=== PATIENT | female | born 1970 | race African-American/Black ===

== ENCOUNTER 2017-07-03 05:41 | Emergency (ER) | payer OTHER ==
[~2017-07-03] VITALS: Ht 152.4 cm; Wt 140.9 kg
[~2017-07-03 05:41] MED LIST: ALBUTEROL S2.5 MG/.5 IN; ALBUTEROL SUL0.083 % IN; ALEVE220 M2 PO; AMOX/K CLAV875 M1 PO; AMOXICILLIN500 MG PO; AMOXICILLIN875 MG OR; B12 LIQUID OR; B12-ACTIVE1 MG PO; BL ADULT ASA81 MG PO; CIPRO500 MG OR; CIPROFLOXACN500 MG PO; DICLOFENAC25 MG PO; FE TABS325 MG PO; FISH OIL300 MG OR; FLEXERIL OR; FLEXERIL PO; FLEXERIL5 M1; FLEXERIL5 M1 PO; FLONASE NASAL50 MCG; HYDROCHLOROT25 MG OR; IBU800 MG OR; IBUPROFEN800 MG OR; IRON18 M1 OR; IRON325 MG PO; KETOROLAC60 MG/2 ML IJ; KETOROLAC60 MG/2 ML IM; MEDDOSEPAK PO; MOBIC7.5 M1; MOBIC7.5 M1 PO; MOTRIN800 MG/TAB PO; NAPROSYN500 MG PO; NORVASC10 M1 PO; NORVASC10 MG PO; NORVASC5 MG OR; PEPTO-BISMOL262 MG OR; PREDNISONE20 MG PO; PROAIR HFA IN; PROMETHAZINE25 MG OR; PROTONIX40 MG OR; PROVERA2.5 MG OR; PYRIDIUM200 MG OR; ROCEPHIN 1 GM1 GM IM; SIMVASTATIN20 MG PO; SOLU-MEDROL125 MG IM; TAGAMET300 MG OR; TORADOL30 MG/VIAL IJ; ULTRAM50 M1 PO; VITAMIN B-12500 MCG PO; ZITHROMAX250 MG PO; ZOCOR20 M1 PO; ZOCOR20 MG PO; ZOFRAN ODT4 MG OR; ZPAK PO; [UNRECOGNIZED DRUG - CODE] OR
[2017-07-03] MEDS ORDERED: AMLOD/BENAZP1 CA2 PO (06:06)
[2017-07-03] MEDS ORDERED: MOTRIN400 MG PO (07:41)
[2017-07-03 07:42] VITALS: BP 136/81
== END 2017-07-03 07:59 | disposition home or self-care (01) | DRG 552 ==
LOC: ED 05:41
DX: M54.5 Low back pain (principal); I10 Essential (primary) hypertension; J45.909 Unspecified asthma, uncomplicated; E78.5 Hyperlipidemia, unspecified; G47.30 Sleep apnea, unspecified; V49.40XA Driver injured in collision with unspecified motor vehicles in traffic accident, initial encounter

== ENCOUNTER 2019-03-31 15:14 | Emergency (ER) | payer OTHER ==
[~2019-03-31] VITALS: Ht 152.4 cm; Wt 140.9 kg
[~2019-03-31 15:14] MED LIST changes: +AMLOD/BENAZP1 CA1 PO; +MOTRIN400 MG PO
[2019-03-31 16:10] LABS: HEMATOCRIT 40.9 % (37.0-47.0); HEMOGLOBIN 12.3 g/dl (12.0-16.0); IMMATURE GRANULOCYTES 0.6 % (0.0-5.0); MEAN CELL VOLUME 78.7 fL CALC (80.0-100.0); MEAN CORPUSCULAR HGB 23.7 pG CALC (26.0-32.0); MEAN CORPUSCULAR HGB CONC 30.1 g/L CALC (32.0-36.0); NEUT# 3.72 thou/uL (2.00-7.15); RED BLOOD COUNT 5.2 mill/uL (4.20-5.60); RED CELL DISTRI WIDTH 17.9 % (11.5-15.5)
[2019-03-31 16:22] LABS: URINE BILIRUBIN - DIPSTICK NEGATIVE (NEGATIVE); URINE BLOOD DIPSTICK NEGATIVE (NEGATIVE); URINE COLOR YELLOW; URINE GLUCOSE - DIPSTICK NEGATIVE (NEGATIVE); URINE KETONE NEGATIVE (NEGATIVE); URINE LEUK ESTERASE NEGATIVE (NEGATIVE); URINE NITRITE - DIPSTICK NEGATIVE (Negative); URINE PROTEIN - DIPSTICK NEGATIVE (NEG-TRACE); URINE UROBILINOGEN - DIPSTICK 0.2 E.U./dL (0.2)
[2019-03-31 16:54] LABS: ANION GAP 12 (6-22 (CALC)); BUN 18 mg/dL (7-17); BUN/CREATININE RATIO 25 (12-20 (CALC)); CARBON DIOXIDE 32 mmol/l (22-30); CHLORIDE 103 mmol/l (95-108); CREATININE 0.7 mg/dL (0.5-1.0); GFR > 60 ML/MIN (>=60 (CALC)); GFR FOR AFR.AMER. > 60 ML/MIN (>=60 (CALC)); POTASSIUM 4.2 mmol/l (3.5-5.1); SODIUM 142 mmol/l (137-146)
[2019-03-31] MEDS ORDERED: FERROUS SULF325 M2 PO (17:01)
[2019-03-31] MEDS ORDERED: LASIX20 MG PO (17:01)
[2019-03-31] MEDS ORDERED: B-12500 MC1 PO (17:02)
[2019-03-31] MEDS ORDERED: FLOVENT HF220 MCG/AC IN (17:03)
[2019-03-31] MEDS ORDERED: METFORMIN500 MG PO (17:04)
[2019-03-31] MEDS ORDERED: LIPITOR20 M1 PO (17:04)
[2019-03-31 17:44] VITALS: BP 161/67
== END 2019-03-31 18:05 | disposition home or self-care (01) | DRG 103 ==
LOC: ED 15:14
PROVIDERS: Family Medicine
DX: R51 Headache (principal); I10 Essential (primary) hypertension; H53.149 Visual discomfort, unspecified

== ENCOUNTER 2019-09-13 19:22 | Inpatient (IN) | payer OTHER ==
[~2019-09-13] VITALS: Ht 152.4 cm; Wt 147.4 kg
[~2019-09-13 19:22] MED LIST changes: +B-12500 MC1 PO; +FERROUS SULF325 M2 PO; +FLOVENT HF220 MCG/AC IN; +LASIX20 MG PO; +LIPITOR20 M1 PO; +METFORMIN500 MG PO
[2019-09-13 20:12] LABS: HEMATOCRIT 42.1 % (37.0-47.0); HEMOGLOBIN 12.4 g/dl (12.0-16.0); IMMATURE GRANULOCYTES 0.5 % (0.0-5.0); MEAN CELL VOLUME 76.5 fL CALC (80.0-100.0); MEAN CORPUSCULAR HGB 22.5 pG CALC (26.0-32.0); MEAN CORPUSCULAR HGB CONC 29.5 g/L CALC (32.0-36.0); NEUT# 7.33 thou/uL (2.00-7.15); RED BLOOD COUNT 5.5 mill/uL (4.20-5.60); RED CELL DISTRI WIDTH 18.3 % (11.5-15.5)
[2019-09-13 20:27] LABS: ALBUMIN 4.2 g/dL (3.2-5.0); ALKALINE PHOSPHATASE 119 u/l (38-126); ANION GAP 12 (6-22 (CALC)); BILIRUBIN, TOTAL 0.4 mg/dL (0.0-1.4); BUN 13 mg/dL (7-17); BUN/CREATININE RATIO 19 (12-20 (CALC)); CARBON DIOXIDE 31 mmol/l (22-30); CHLORIDE 99 mmol/l (95-108); CREATININE 0.7 mg/dL (0.5-1.0); GFR > 60 ML/MIN (>=60 (CALC)); GFR FOR AFR.AMER. > 60 ML/MIN (>=60 (CALC)); POTASSIUM 4.1 mmol/l (3.5-5.1); SGOT/AST 24 u/l (14-36); SODIUM 137 mmol/l (137-146); TOTAL PROTEIN 8.3 g/dL (6.3-8.2)
[2019-09-13 20:39] LABS: MYOGLOBIN 33 ng/mL (0 - 62)
[2019-09-13 22:45] LABS: URINE BILIRUBIN - DIPSTICK NEGATIVE (NEGATIVE); URINE BLOOD DIPSTICK TRACE-INTACT (NEGATIVE); URINE COLOR YELLOW; URINE GLUCOSE - DIPSTICK NEGATIVE (NEGATIVE); URINE KETONE NEGATIVE (NEGATIVE); URINE LEUK ESTERASE NEGATIVE (NEGATIVE); URINE NITRITE - DIPSTICK NEGATIVE (Negative); URINE PH 6.5 (4.5-8.0); URINE PROTEIN - DIPSTICK NEGATIVE (NEG-TRACE); URINE UROBILINOGEN - DIPSTICK 0.2 E.U./dL (0.2)
[2019-09-13] MEDS ORDERED: SINGULAIR10 MG PO (23:09)
[2019-09-13] MEDS ORDERED: XALATAN 0.005%2.5 ML OU (23:12)
[2019-09-14] VITALS (7 sets, daily range): BP systolic 122–170; BP diastolic 73–84
[2019-09-14 10:20] LABS: MAGNESIUM 1.6 mg/dL (1.6-2.3)
[2019-09-14] MEDS ORDERED: IPRATROPIU0.5 MG/3 M NEB (13:53)
[2019-09-14] MEDS ORDERED: VENTOLIN H108 MCG/AC PO (13:56)
[2019-09-15 04:07] VITALS: BP 142/86
[2019-09-15 06:13] LABS: ANION GAP 11 (6-22 (CALC)); BUN 16 mg/dL (7-17); BUN/CREATININE RATIO 27 (12-20 (CALC)); CARBON DIOXIDE 31 mmol/l (22-30); CHLORIDE 102 mmol/l (95-108); CREATININE 0.6 mg/dL (0.5-1.0); GFR > 60 ML/MIN (>=60 (CALC)); GFR FOR AFR.AMER. > 60 ML/MIN (>=60 (CALC)); SODIUM 139 mmol/l (137-146)
[2019-09-15 06:18] LABS: HEMATOCRIT 43.6 % (37.0-47.0); HEMOGLOBIN 12.8 g/dl (12.0-16.0); IMMATURE GRANULOCYTES 0.9 % (0.0-5.0); MEAN CELL VOLUME 77.4 fL CALC (80.0-100.0); MEAN CORPUSCULAR HGB 22.7 pG CALC (26.0-32.0); MEAN CORPUSCULAR HGB CONC 29.4 g/L CALC (32.0-36.0); NEUT# 10.15 thou/uL (2.00-7.15); RED BLOOD COUNT 5.63 mill/uL (4.20-5.60); RED CELL DISTRI WIDTH 18.6 % (11.5-15.5)
[2019-09-15 08:10] VITALS: BP 131/85
[2019-09-15 11:00] VITALS: BP 159/76
[2019-09-15 15:20] VITALS: BP 150/86
[2019-09-15 19:12] VITALS: BP 139/79
[2019-09-15 23:54] VITALS: BP 135/65
[2019-09-16 04:40] VITALS: BP 123/75
[2019-09-16 07:00] VITALS: BP 123/67
[2019-09-16 11:03] VITALS: BP 144/85
[2019-09-16 13:17] LABS: ANION GAP 12 (6-22 (CALC)); BUN 24 mg/dL (7-17); BUN/CREATININE RATIO 25 (12-20 (CALC)); CARBON DIOXIDE 32 mmol/l (22-30); CHLORIDE 99 mmol/l (95-108); GFR 58 ML/MIN (>=60 (CALC)); GFR FOR AFR.AMER. > 60 ML/MIN (>=60 (CALC)); POTASSIUM 4.9 mmol/l (3.5-5.1); SODIUM 138 mmol/l (137-146)
[2019-09-16 13:19] LABS: MAGNESIUM 2.1 mg/dL (1.6-2.3)
[2019-09-16 20:00] VITALS: BP 137/79
[2019-09-17 00:35] VITALS: BP 141/77
[2019-09-17 04:10] VITALS: BP 135/73
[2019-09-17 07:29] VITALS: BP 148/89
[2019-09-17 11:00] VITALS: BP 143/92
[2019-09-17 13:10] LABS: HEMATOCRIT 43.4 % (37.0-47.0); HEMOGLOBIN 12.8 g/dl (12.0-16.0); IMMATURE GRANULOCYTES 2.6 % (0.0-5.0); MEAN CELL VOLUME 77.1 fL CALC (80.0-100.0); MEAN CORPUSCULAR HGB 22.7 pG CALC (26.0-32.0); MEAN CORPUSCULAR HGB CONC 29.5 g/L CALC (32.0-36.0); NEUT# 10.98 thou/uL (2.00-7.15); RED BLOOD COUNT 5.63 mill/uL (4.20-5.60); RED CELL DISTRI WIDTH 18.6 % (11.5-15.5)
[2019-09-17 13:31] LABS: ANION GAP 13 (6-22 (CALC)); BUN 24 mg/dL (7-17); BUN/CREATININE RATIO 34 (12-20 (CALC)); CARBON DIOXIDE 30 mmol/l (22-30); CHLORIDE 99 mmol/l (95-108); CREATININE 0.7 mg/dL (0.5-1.0); GFR > 60 ML/MIN (>=60 (CALC)); GFR FOR AFR.AMER. > 60 ML/MIN (>=60 (CALC)); MAGNESIUM 2.1 mg/dL (1.6-2.3); POTASSIUM 4.6 mmol/l (3.5-5.1); SODIUM 138 mmol/l (137-146)
[2019-09-17 15:20] VITALS: BP 161/78
[2019-09-17 18:59] VITALS: BP 158/70
[2019-09-18] VITALS (8 sets, daily range): BP systolic 134–176; BP diastolic 86–100
[2019-09-18 05:13] LABS: HEMATOCRIT 43.4 % (37.0-47.0); HEMOGLOBIN 12.6 g/dl (12.0-16.0); IMMATURE GRANULOCYTES 1.5 % (0.0-5.0); MEAN CELL VOLUME 77.9 fL CALC (80.0-100.0); MEAN CORPUSCULAR HGB 22.6 pG CALC (26.0-32.0); NEUT# 9.48 thou/uL (2.00-7.15); RED BLOOD COUNT 5.57 mill/uL (4.20-5.60); RED CELL DISTRI WIDTH 18.1 % (11.5-15.5)
[2019-09-18 05:44] LABS: BUN 24 mg/dL (7-17); BUN/CREATININE RATIO 35 (12-20 (CALC)); CARBON DIOXIDE 35 mmol/l (22-30); CHLORIDE 99 mmol/l (95-108); CREATININE 0.7 mg/dL (0.5-1.0); GFR > 60 ML/MIN (>=60 (CALC)); GFR FOR AFR.AMER. > 60 ML/MIN (>=60 (CALC)); SODIUM 139 mmol/l (137-146)
[2019-09-18 05:51] LABS: ANION GAP 10 (6-22 (CALC)); POTASSIUM 5.2 mmol/l (3.5-5.1)
[2019-09-19 04:01] VITALS: BP 181/101
[2019-09-19 05:31] LABS: HEMATOCRIT 43.2 % (37.0-47.0); HEMOGLOBIN 12.9 g/dl (12.0-16.0); IMMATURE GRANULOCYTES 1.7 % (0.0-5.0); MEAN CELL VOLUME 76.1 fL CALC (80.0-100.0); MEAN CORPUSCULAR HGB 22.7 pG CALC (26.0-32.0); MEAN CORPUSCULAR HGB CONC 29.9 g/L CALC (32.0-36.0); NEUT# 11.4 thou/uL (2.00-7.15); RED BLOOD COUNT 5.68 mill/uL (4.20-5.60); RED CELL DISTRI WIDTH 18.4 % (11.5-15.5)
[2019-09-19 05:52] LABS: ANION GAP 11 (6-22 (CALC)); BUN 21 mg/dL (7-17); BUN/CREATININE RATIO 28 (12-20 (CALC)); CARBON DIOXIDE 34 mmol/l (22-30); CHLORIDE 97 mmol/l (95-108); CREATININE 0.7 mg/dL (0.5-1.0); GFR > 60 ML/MIN (>=60 (CALC)); GFR FOR AFR.AMER. > 60 ML/MIN (>=60 (CALC)); POTASSIUM 4.5 mmol/l (3.5-5.1); SODIUM 138 mmol/l (137-146)
[2019-09-19 08:00] VITALS: BP 159/89
[2019-09-19] MEDS ORDERED: PREDNISONE10 MG PO (10:24)
[2019-09-19] MEDS ORDERED: ZITHROMAX250 MG PO (10:24)
[2019-09-19] MEDS ORDERED: APRESOLINE50 MG PO (10:32)
[2019-09-19 10:44] VITALS: BP 156/94
== END 2019-09-19 14:09 | disposition home or self-care (01) | DRG 193 ==
LOC: ED 19:22 → ED-I 20:50 → ED 21:14 → MS2 21:15
PROVIDERS: Emergency Medicine; Nurse Practitioner Family; ADMIT Internal Medicine; ATTEND Internal Medicine
DX: J18.9 Pneumonia, unspecified organism (principal); J96.02 Acute respiratory failure with hypercapnia; J96.01 Acute respiratory failure with hypoxia; J45.901 Unspecified asthma with (acute) exacerbation; E66.2 Morbid (severe) obesity with alveolar hypoventilation; Z68.44 Body mass index [BMI] 60.0-69.9, adult; I47.2 Ventricular tachycardia; I30.9 Acute pericarditis, unspecified; Z99.81 Dependence on supplemental oxygen; I11.0 Hypertensive heart disease with heart failure; I50.9 Heart failure, unspecified; E11.9 Type 2 diabetes mellitus without complications; Z79.84 Long term (current) use of oral hypoglycemic drugs; E78.5 Hyperlipidemia, unspecified; D50.9 Iron deficiency anemia, unspecified
CPT/HCPCS: J1650; Q9967

== ENCOUNTER 2020-07-19 09:11 | Emergency (ER) | payer OTHER ==
[~2020-07-19] VITALS: Ht 152.4 cm; Wt 110.0 kg
[~2020-07-19 09:11] MED LIST changes: +APRESOLINE50 MG PO; +IPRATROPIU0.5 MG/3 M NEB; +PREDNISONE10 MG PO; +SINGULAIR10 MG PO; +VENTOLIN H108 MCG/AC PO; +XALATAN 0.005%2.5 ML OU
[2020-07-19 10:17] LABS: HEMATOCRIT 41.7 % (37.0-47.0); HEMOGLOBIN 12.3 g/dl (12.0-16.0); IMMATURE GRANULOCYTES 0.8 % (0.0-5.0); MEAN CORPUSCULAR HGB 23.6 pG CALC (26.0-32.0); MEAN CORPUSCULAR HGB CONC 29.5 g/dL CAL (32.0-36.0); NEUT# 6.43 thou/uL (2.00-7.15); RED BLOOD COUNT 5.21 mill/uL (4.20-5.60); RED CELL DISTRI WIDTH 16.6 % (11.5-15.5)
[2020-07-19 11:06] LABS: ALBUMIN 3.8 g/dL (3.2-5.0); ALKALINE PHOSPHATASE 110 u/l (38-126); AMYLASE 79 u/l (30-110); ANION GAP 9 (6-22 (CALC)); BILIRUBIN, TOTAL 0.3 mg/dL (0.0-1.4); BUN 16 mg/dL (7-17); BUN/CREATININE RATIO 23 (12-20 (CALC)); CARBON DIOXIDE 31 mmol/l (22-30); CHLORIDE 101 mmol/l (95-108); CREATININE 0.7 mg/dL (0.5-1.0); GFR > 60 ML/MIN (>=60 (CALC)); GFR FOR AFR.AMER. > 60 ML/MIN (>=60 (CALC)); LIPASE 149 u/l (23-300); POTASSIUM 4.1 mmol/l (3.5-5.1); SGOT/AST 17 u/l (14-36); SODIUM 136 mmol/l (137-146); TOTAL PROTEIN 7.1 g/dL (6.3-8.2)
[2020-07-19 11:19] LABS: MYOGLOBIN 44 ng/mL (0 - 62)
[2020-07-19 12:26] LABS: URINE BILIRUBIN - DIPSTICK NEGATIVE (NEGATIVE); URINE BLOOD DIPSTICK NEGATIVE (NEGATIVE); URINE COLOR YELLOW; URINE GLUCOSE - DIPSTICK NEGATIVE (NEGATIVE); URINE KETONE NEGATIVE (NEGATIVE); URINE LEUK ESTERASE NEGATIVE (NEGATIVE); URINE NITRITE - DIPSTICK NEGATIVE (Negative); URINE PROTEIN - DIPSTICK NEGATIVE (NEG-TRACE); URINE UROBILINOGEN - DIPSTICK 0.2 E.U./dL (0.2)
[2020-07-19] MEDS ORDERED: PREVACID30 M3 PO (12:41)
[2020-07-19] MEDS ORDERED: ONDANSETRON4 MG PO (12:41)
[2020-07-19 12:48] VITALS: BP 142/77
== END 2020-07-19 13:00 | disposition home or self-care (01) | DRG 392 ==
LOC: ED 09:11
PROVIDERS: Emergency Medicine
DX: K52.9 Noninfective gastroenteritis and colitis, unspecified (principal); E11.9 Type 2 diabetes mellitus without complications; I11.0 Hypertensive heart disease with heart failure; I50.9 Heart failure, unspecified; K21.9 Gastro-esophageal reflux disease without esophagitis; J45.909 Unspecified asthma, uncomplicated; Z79.84 Long term (current) use of oral hypoglycemic drugs
CPT/HCPCS: Q9967; S0164

== ENCOUNTER 2021-11-12 12:54 | Emergency (ER) | payer OTHER ==
[~2021-11-12] VITALS: Ht 152.4 cm; Wt 150.0 kg
[~2021-11-12 12:54] MED LIST changes: +ONDANSETRON4 MG PO; +PREVACID30 M3 PO
[2021-11-12 14:12] VITALS: BP 143/68
== END 2021-11-12 14:35 | disposition left against medical advice (07) | DRG 951 ==
LOC: ED 12:54 → LWOBS 14:34
DX: Z53.21 Procedure and treatment not carried out due to patient leaving prior to being seen by health care provider (principal)

== ENCOUNTER 2021-11-17 16:03 | Emergency (ER) | payer OTHER ==
[~2021-11-17] VITALS: Ht 152.4 cm; Wt 141.9 kg
[2021-11-17 17:34] LABS: URINE BILIRUBIN - DIPSTICK NEGATIVE (NEGATIVE); URINE BLOOD DIPSTICK NEGATIVE (NEGATIVE); URINE COLOR YELLOW; URINE GLUCOSE - DIPSTICK NEGATIVE (NEGATIVE); URINE KETONE NEGATIVE (NEGATIVE); URINE LEUK ESTERASE NEGATIVE (NEGATIVE); URINE PROTEIN - DIPSTICK NEGATIVE (NEG-TRACE); URINE UROBILINOGEN - DIPSTICK 0.2 E.U./dL (0.2)
[2021-11-17 17:34] LABS: HEMATOCRIT 40.4 % (37.0-47.0); HEMOGLOBIN 12.1 g/dl (12.0-16.0); IMMATURE GRANULOCYTES 0.2 % (0.0-5.0); MEAN CELL VOLUME 77.5 fL CALC (80.0-100.0); MEAN CORPUSCULAR HGB 23.2 pG CALC (26.0-32.0); NEUT# 4.71 thou/uL (2.00-7.15); RED BLOOD COUNT 5.21 mill/uL (4.20-5.60); RED CELL DISTRI WIDTH 17.3 % (11.5-15.5)
[2021-11-17 17:36] LABS: URINE NITRITE - DIPSTICK NEGATIVE (Negative)
[2021-11-17 17:57] LABS: ALKALINE PHOSPHATASE 124 u/l (38-126); BILIRUBIN, TOTAL 0.3 mg/dL (0.0-1.4); BUN 17 mg/dL (7-17); BUN/CREATININE RATIO 20 (12-20 (CALC)); CARBON DIOXIDE 32 mmol/l (22-30); CHLORIDE 101 mmol/l (95-108); CREATININE 0.9 mg/dL (0.5-1.0); GFR > 60 ML/MIN (>=60 (CALC)); GFR FOR AFR.AMER. > 60 ML/MIN (>=60 (CALC)); POTASSIUM 4.3 mmol/l (3.5-5.1); SGOT/AST 20 u/l (14-36); TOTAL PROTEIN 7.8 g/dL (6.3-8.2)
[2021-11-17 17:59] LABS: ANION GAP 10 (6-22 (CALC)); SODIUM 139 mmol/l (137-146)
[2021-11-17 19:06] VITALS: BP 132/82
== END 2021-11-17 19:14 | disposition home or self-care (01) | DRG 948 ==
LOC: ED 16:03
PROVIDERS: Family Medicine
DX: R53.83 Other fatigue (principal); I11.0 Hypertensive heart disease with heart failure; I50.9 Heart failure, unspecified; E11.9 Type 2 diabetes mellitus without complications; K21.9 Gastro-esophageal reflux disease without esophagitis; E78.5 Hyperlipidemia, unspecified; J45.909 Unspecified asthma, uncomplicated; G47.30 Sleep apnea, unspecified; Z79.84 Long term (current) use of oral hypoglycemic drugs

== ENCOUNTER 2022-03-10 15:17 | Emergency (ER) | payer OTHER ==
[~2022-03-10] VITALS: Ht 152.4 cm; Wt 86.0 kg
[2022-03-10 15:17] VITALS: BP 150/80
[2022-03-10 17:22] LABS: HEMATOCRIT 38.8 % (37.0-47.0); HEMOGLOBIN 11.9 g/dl (12.0-16.0); IMMATURE GRANULOCYTES 0.2 % (0.0-5.0); MEAN CELL VOLUME 75.6 fL CALC (80.0-100.0); MEAN CORPUSCULAR HGB 23.2 pG CALC (26.0-32.0); MEAN CORPUSCULAR HGB CONC 30.7 g/dL CAL (32.0-36.0); NEUT# 5.07 thou/uL (2.00-7.15); RED BLOOD COUNT 5.13 mill/uL (4.20-5.60); RED CELL DISTRI WIDTH 17.7 % (11.5-15.5)
[2022-03-10 17:46] LABS: ALBUMIN 4.2 g/dL (3.2-5.0); ALKALINE PHOSPHATASE 109 u/l (38-126); ANION GAP 12 (6-22 (CALC)); BILIRUBIN, TOTAL 0.3 mg/dL (0.0-1.4); BUN 18 mg/dL (7-17); BUN/CREATININE RATIO 21 (12-20 (CALC)); CARBON DIOXIDE 29 mmol/l (22-30); CHLORIDE 101 mmol/l (95-108); CREATININE 0.8 mg/dL (0.5-1.0); GFR > 60 ML/MIN (>=60 (CALC)); GFR FOR AFR.AMER. > 60 ML/MIN (>=60 (CALC)); POTASSIUM 4.4 mmol/l (3.5-5.1); SGOT/AST 20 u/l (14-36); SODIUM 138 mmol/l (137-146); TOTAL PROTEIN 7.7 g/dL (6.3-8.2)
[2022-03-10] MEDS ORDERED: XANAX0.25 MG PO (18:42)
== END 2022-03-10 19:25 | disposition home or self-care (01) | DRG 880 ==
LOC: ED 15:17
PROVIDERS: Nurse Practitioner
DX: F41.9 Anxiety disorder, unspecified (principal); I11.0 Hypertensive heart disease with heart failure; I50.9 Heart failure, unspecified; E11.9 Type 2 diabetes mellitus without complications; E78.5 Hyperlipidemia, unspecified; K21.9 Gastro-esophageal reflux disease without esophagitis; J45.909 Unspecified asthma, uncomplicated; Z79.84 Long term (current) use of oral hypoglycemic drugs

== ENCOUNTER 2022-11-26 18:03 | Emergency (ER) | payer OTHER ==
[~2022-11-26] VITALS: Ht 152.4 cm; Wt 137.7 kg
[~2022-11-26 18:03] MED LIST changes: +XANAX0.25 MG PO
[2022-11-26 20:45] VITALS: BP 139/89
== END 2022-11-26 21:20 | disposition home or self-care (01) | DRG 563 ==
LOC: ED 18:03
DX: S39.012A Strain of muscle, fascia and tendon of lower back, initial encounter (principal); S16.1XXA Strain of muscle, fascia and tendon at neck level, initial encounter; S40.011A Contusion of right shoulder, initial encounter; S80.01XA Contusion of right knee, initial encounter; I11.0 Hypertensive heart disease with heart failure; S00.93XA Contusion of unspecified part of head, initial encounter; I50.9 Heart failure, unspecified; E11.9 Type 2 diabetes mellitus without complications; E78.5 Hyperlipidemia, unspecified; K21.9 Gastro-esophageal reflux disease without esophagitis; J45.909 Unspecified asthma, uncomplicated; W01.0XXA Fall on same level from slipping, tripping and stumbling without subsequent striking against object, initial encounter; Y92.89 Other specified places as the place of occurrence of the external cause; Y99.0 Civilian activity done for income or pay; Z79.84 Long term (current) use of oral hypoglycemic drugs

== ENCOUNTER 2024-09-22 16:41 | Emergency (ER) | payer OTHER ==
[~2024-09-22] VITALS: Ht 152.4 cm; Wt 125.2 kg
[2024-09-22 16:49] VITALS: BP 142/93
[2024-09-22] MEDS ORDERED: CEPHALEXIN500 M1 PO (17:06)
[2024-09-22] MEDS ORDERED: BACTRIM DS1 TAB PO (17:06)
[2024-09-22 17:12] VITALS: BP 142/93
== END 2024-09-22 17:21 | disposition home or self-care (01) | DRG 603 ==
LOC: ED 16:41
PROC: 0H96XZZ Drainage of Back Skin, External Approach (ICD-10-PCS; principal; 2024-09-22)
DX: L02.212 Cutaneous abscess of back [any part, except buttock and flank] (principal); E11.9 Type 2 diabetes mellitus without complications; I11.0 Hypertensive heart disease with heart failure; I50.9 Heart failure, unspecified; E78.5 Hyperlipidemia, unspecified; E66.01 Morbid (severe) obesity due to excess calories; Z79.84 Long term (current) use of oral hypoglycemic drugs

== ENCOUNTER 2024-09-24 16:03 | Emergency (ER) | payer OTHER ==
[~2024-09-24] VITALS: Ht 152.4 cm; Wt 150.0 kg
[~2024-09-24 16:03] MED LIST changes: +BACTRIM DS1 TAB PO; +CEPHALEXIN500 M1 PO
[2024-09-24 16:50] VITALS: BP 148/94
== END 2024-09-24 16:54 | disposition home or self-care (01) | DRG 951 ==
LOC: ED 16:03
DX: Z48.01 Encounter for change or removal of surgical wound dressing (principal)